=== PATIENT | male | born 1955 | race Two or more races ===

== ENCOUNTER 2020-07-03 05:44 | Day surgery (SDC) | payer OTHER ==
[~2020-07-03] VITALS: Ht 167.6 cm; Wt 88.0 kg
[2020-07-03] MEDS ORDERED: methylPREDNISolone *ACETATE* 40 MG/ML ONE (06:24)
[2020-07-03] MEDS ORDERED: ROPIvacaine/PF 0.5%, 20 ML ONE (06:24)
[2020-07-03] MEDS ORDERED: EPINEPHRINE 1 MG/ML, 1ML ONE (06:24)
[2020-07-03] MEDS ORDERED: PROPOFOL 10 MG/ML, 20ML ONE (06:25)
[2020-07-03] MEDS ORDERED: FENTANYL PF 100 MCG/2ML ONE (06:26)
[2020-07-03] MEDS ORDERED: LACTATED RINGERS 1,000 ML IV SCH (06:30)
[2020-07-03] MEDS ORDERED: CHLORHEXIDINE 15 ML UDC MM ONE (06:30)
[2020-07-03] MEDS ORDERED: LIDOCAINE-MPF 1%, 2ML INFIL ONE (06:30)
[2020-07-03 06:31] VITALS: BP 160/101
[2020-07-03] MEDS ORDERED: SIMV20TA19 PO (06:31)
[2020-07-03] MEDS ORDERED: MELO15TA24 PO (06:31)
[2020-07-03] MEDS ORDERED: hydrALAzine 20 MG/ML, 1ML IV PRN (07:00)
[2020-07-03] MEDS ORDERED: MEPERIDINE/PF 25MG/0.5ML IVPush PRN (07:00)
[2020-07-03] MEDS ORDERED: morphine SULFATE 10 MG/ML, 1ML IVPush PRN ×2 (07:00)
[2020-07-03] MEDS ORDERED: ONDANSETRON 2MG/ML, 2ML IVPush PRN ×2 (07:00)
[2020-07-03] MEDS ORDERED: HYDROmorphone 1 MG/ML, 1ML INJ IVPush PRN (07:00)
[2020-07-03] MEDS ORDERED: LABETALOL 5MG/ML, 20ML IV PRN (07:00)
[2020-07-03] MEDS ORDERED: ACETAMINOPHEN 325 MG TABLET PO PRN ×2 (07:00)
[2020-07-03] MEDS ORDERED: OXYcodone 5 MG/5 ML ORAL.SOL UDC PO PRN ×2 (07:00)
[2020-07-03] MEDS ORDERED: FENTANYL PF 100 MCG/2ML IV PRN (07:00)
[2020-07-03] MEDS ORDERED: SIMVASTATIN 20 MG TABLET PO SCH (21:00)
== END 2020-07-03 08:25 | disposition home or self-care (01) ==
LOC: OUT 05:44
PROVIDERS: ATTEND Orthopaedic Surgery
DX: T84.82XA Fibrosis due to internal orthopedic prosthetic devices, implants and grafts, initial encounter (principal); E78.5 Hyperlipidemia, unspecified; G89.18 Other acute postprocedural pain; Z79.1 Long term (current) use of non-steroidal anti-inflammatories (NSAID); Z79.899 Other long term (current) drug therapy; Z87.891 Personal history of nicotine dependence; Z82.61 Family history of arthritis; Y84.8 Other medical procedures as the cause of abnormal reaction of the patient, or of later complication, without mention of misadventure at the time of the procedure
CPT/HCPCS: 27570; 64447; 87635; J2704; J3010; J7120; J0171; J2795; J1030